=== PATIENT | male | born 1945 | race American Indian/Alaskan Native ===

== ENCOUNTER 2019-08-14 21:30 | Inpatient (IN) | payer MEDICARE ==
--- NOTE | 2019-08-14 22:15 | Emergency Department Report ---
HPI - General Chief Complaint: Chest Pain Time Seen by Provider: 08/14/19 21:38 - HPI HPI: 74-year-old Sonal male presents to the emergency department from home with complaint of some midsternal or generalized chest tightness that occurred earlier in the day. The patient says he went out to eat and when he came home he had some gas and bloating that caused this chest discomfort. About 3 hours prior to presentation the patient had an episode of vomiting and says that after he vomited all of his symptoms resolved. He did not take anything for her symptoms prior to arrival. He has a past medical history of non-insulin dependent diabetes, hypertension and hyperlipidemia. He denies any history of CT, CVA or PE/DVT. No recent travel or sick contacts at home. ED Past Medical Hx - Past Medical History Hx Hypertension: Yes Hx Diabetes: Yes - Surgical History Past Surgical History?: No - Social History Smoking Status: Never Smoker Substance Use Type: Alcohol - Medications Home Medications: Home Medications Medication Instructions Recorded Confirmed Last Taken Type Calcium Carbonate [Calcium] 1 tab PO DAILY 01/17/15 02/10/15 1 Day Ago History ~02/09/15 Cholecalciferol (Vitamin D3) 1 tab PO DAILY 01/17/15 02/10/15 1 Day Ago History [Vitamin D] ~02/09/15 Lisinopril 10 mg PO DAILY 01/17/15 02/10/15 1 Day Ago History ~02/09/15 metFORMIN [Glucophage] 500 mg PO BID #1 tablet 01/17/15 02/10/15 1 Day Ago Rx ~02/09/15 Saxagliptin HCl [Onglyza] 2.5 mg PO QDAY 02/10/15 02/10/15 1 Day Ago History ~02/09/15 ED Review of Systems ROS: Stated complaint: NAUSEA AND VOMITING Other details as noted in HPI Comment: All other systems reviewed and negative Constitutional: denies: chills, fever Eyes: denies: eye pain, vision change ENT: denies: ear pain, throat pain Respiratory: denies: cough, shortness of breath Cardiovascular: chest pain. denies: palpitations Gastrointestinal: vomiting. denies: abdominal pain Genitourinary: denies: dysuria, discharge Musculoskeletal: denies: back pain, arthralgia Skin: denies: rash, lesions Neurological: denies: headache, weakness Physical Exam - Physical Exam Vital Signs: Vital Signs 08/14/19 08/14/19 21:41 21:45 Temperature 97.4 F L Pulse Rate 102 H Respiratory 11 L Rate Blood Pressure 161/85 O2 Sat by Pulse 100 Oximetry Physical Exam: GENERAL: The patient is well-developed well-nourished. HENT: Normocephalic. Atraumatic. Patient has moist mucous membranes. EYES: Extraocular motions are intact. NECK: Supple. Trachea is midline. CHEST/LUNGS: Clear to auscultation. There is no respiratory distress noted. HEART/CARDIOVASCULAR: Regular. There is no tachycardia. There is no murmur. ABDOMEN: Abdomen is soft, nontender. Patient has normal bowel sounds. There is no abdominal distention. SKIN: Skin is warm and dry. NEURO: The patient is awake, alert, and oriented. The patient is cooperative. The patient has no focal neurologic deficits. Normal speech. MUSCULOSKELETAL: There is no tenderness or deformity. There is no evidence of acute injury. ED Course Vital Signs 08/14/19 08/14/19 21:41 21:45 Temperature 97.4 F L Pulse Rate 102 H Respiratory 11 L Rate Blood Pressure 161/85 O2 Sat by Pulse 100 Oximetry - Consultations Consultation #1: 08/15/19 00:37 I spoke with the conversion developer on-call, Dr. Ferrari, who agrees with the plan for the hyperkalemia cocktail and he will see the patient as a consult tomorrow. ED Medical Decision Making - Lab Data Result diagrams: 08/14/19 22:22 08/14/19 23:20 - EKG Data -: EKG Interpreted by Me EKG shows normal: sinus rhythm, axis (left axis deviation), intervals (prolonged QTC), QRS complexes (left bundle branch block), ST-T waves Rate: normal - EKG Data When compared to previous EKG there are: no significant change Interpretation: unchanged when compared t (02/10/15) - Radiology Data Radiology results: image reviewed interpreted by me: Chest x-ray does not show any acute process. There are no pleural effusions, obvious pneumonia and there is no pneumothorax. - Medical Decision Making This patient presents to the emergency department for evaluation after he had some chest tightness a few hours prior to arrival. The patient says that he had some gas, bloating and the chest tightness after eating some food but that all the symptoms resolved after he vomited. Overall this sounds more GI than cardiac, but the patient was evaluated as a chest pain protocol. EKG did not show any signs of ST elevation CT. He has a left bundle branch block and it appears unchanged from his previous EKG. Patient's labs show worsening renal insufficiency. Patient has had negative troponins 2 thus far. He was found to have hyperkalemia with potassium 6.5. This was repeated to make sure it was correct, but the repeat potassium level came back at 6.3. Patient was given hyperkalemia cocktail and nephrology was contacted and consulted. The patient will be admitted to the hospital and was accepted for admission by the hospitalist, Dr. Adame. - Differential Diagnosis CT, Esophageal spasm, electrolyte abnormalities, dysrythmia. Critical Care Time: No Critical care attestation.: If time is entered above; I have spent that time in minutes in the direct care of this critically ill patient, excluding procedure time. ED Disposition Clinical Impression: Left bundle branch block (LBBB), Intermittent chest pain, Hyperkalemia Acute on chronic renal failure Qualifiers: Acute renal failure type: unspecified Chronic kidney disease stage: unspecified stage Qualified Code(s): N17.9 - Acute kidney failure, unspecified; N18.9 - Chronic kidney disease, unspecified Disposition: OP ADMIT IP TO THIS HOSP Is pt being admited?: Yes Condition: Fair Time of Disposition: 02:57
--- NOTE | 2019-08-14 22:19 | XRay Report ---
CHEST 1 VIEW 08/14/2019 9:58 PM INDICATION / CLINICAL INFORMATION: Chest pain. COMPARISON: One view of the chest from 01/16/2015. FINDINGS: SUPPORT DEVICES: None. HEART / MEDIASTINUM: No significant abnormality. LUNGS / PLEURA: No significant pulmonary or pleural abnormality. No pneumothorax. ADDITIONAL FINDINGS: No significant additional findings. IMPRESSION: 1. No acute abnormality of the chest. Signer Name: Aj Anderson MD Signed: 08/14/2019 10:15 PM Workstation Name: [id number]
[2019-08-14 22:34] LABS: Basophils % (Auto) 0.4 % (0.0-1.8); Eosinophils % (Auto) 0.3 % (0.0-4.3); Hematocrit 40.9 % (35.5-45.6); Hemoglobin 13.5 gm/dl (11.8-15.2); Lymphocytes # (Auto) 1.1 K/mm3 (1.2-5.4); Lymphocytes % (Auto) 12.8 % (13.4-35.0); Mean Corpuscular HGB Conc 33 % (32-34); Mean Corpuscular Volume 94 fl (84-94); Monocytes # (Auto) 0.7 K/mm3 (0.0-0.8); Monocytes % (Auto) 7.3 % (0.0-7.3); Platelet Count 191 K/mm3 (140-440); Red Blood Count 4.33 M/mm3 (3.65-5.03); Red Cell Distribution Width 13.3 % (13.2-15.2)
[2019-08-14 22:44] LABS: INR 1.13 (0.87-1.13)
[2019-08-14 22:45] LABS: Partial Thromboplastin Time 22.7 Sec. (24.2-36.6)
[2019-08-14 22:46] LABS: Calcium 9.3 mg/dL (8.4-10.2)
[2019-08-15] MEDS ORDERED: SODIUM POLYSTYRENE 15 GM/60 ML ORAL LIQD PO ONE (00:19)
[2019-08-15] MEDS ORDERED: DEXTROSE 50% IN WATER (25GM) 50 ML SYRINGE IV ONE (00:20)
[2019-08-15] MEDS ORDERED: ALBUTEROL 2.5 MG/3 ML NEBU IH ONE ×2 (00:20→04:55)
[2019-08-15] MEDS ORDERED: CALCIUM GLUCONATE 1,000 MG in SODIUM CHLORIDE 0.9% 100 ML IV ONE (00:20)
[2019-08-15] MEDS ORDERED: INSULIN REGULAR, HUMAN 100 UNITS/1 ML IV ONE (00:20)
[2019-08-15] MEDS ORDERED: ONDANSETRON 4 MG/2 ML INJ IV PRN (01:19)
[2019-08-15] MEDS ORDERED: ACETAMINOPHEN 325 MG TAB PO PRN (01:19)
--- NOTE | 2019-08-15 01:27 | History and Physical Report ---
History of Present Illness Date of examination: 08/15/19 History of present illness: 74-year-old man with a history of hypertension, diabetes, chronic kidney disease comes emergency room for evaluation. He stated that he went to primary today, blocked food aided and later on developed nausea vomiting and diarrhea. Patient stated he felt better after vomiting, his daughter urged him to come to the emergency room for evaluation Review of systems Constitutional: no weight loss, chills, fever Ears, eyes, nose, mouth and throat: no nasal congestion, no nasal discharge, no sinus pressure, no vision change, no red eye. Neck: No neck pain or rigidity. Cardiovascular: no chest pain, palpitations Respiratory: no cough, shortness of breath Gastrointestinal: no abdominal pain hematochezia Genitourinary : no frequency , no hematuria Musculoskeletal: no joint swelling or muscle ache Integumentary: no rash, no pruritis Neurological: no parathesias, no numbness, no focal weakness Endocrine: no cold or heat intolerance, no polyuria or polydipsia Hematologic/Lymphatic: no easy bruising, no easy bleeding, no gland swelling Allergic/Immunologic: no urticaria, no angioedema. PAST MEDICAL HISTORY PAST SURGICAL HISTORY: None SOCIAL HISTORY: No drugs, tobacco, alcohol FAMILY HISTORY: Hypertension Medications and Allergies Allergies Allergy/AdvReac Type Severity Reaction Status Date / Time No Known Allergies Allergy Verified 02/10/15 07:51 Home Medications Medication Instructions Recorded Confirmed Last Taken Type Calcium Carbonate [Calcium] 1 tab PO DAILY 01/17/15 08/15/19 1 Day Ago History ~02/09/15 Cholecalciferol (Vitamin D3) 1 tab PO DAILY 01/17/15 08/15/19 1 Day Ago History [Vitamin D] ~02/09/15 Lisinopril 10 mg PO DAILY 01/17/15 08/15/19 1 Day Ago History ~02/09/15 metFORMIN [Glucophage] 500 mg PO BID #1 tablet 01/17/15 08/15/19 1 Day Ago Rx ~02/09/15 Saxagliptin HCl [Onglyza] 2.5 mg PO QDAY 02/10/15 08/15/19 1 Day Ago History ~02/09/15 Exam - Physical Exam Narrative exam: Gen. appearance: Patient lying in bed, no apparent distress HEENT: Normocephalic, atraumatic, pupils equally round and reactive to light, extraocular movement intact, and no sclericterus,. No JVD or thyromegaly or nodule,neck supple, no carotid bruit ,mucous membranes moist, no exudate or erythema Heart: S1, S2, regular rate and rhythm Lungs: Clear bilaterally, breathing comfortable Abdomen: Positive bowel sounds, non-tender, nondistended, no organomegaly Extremity:no edema cyanosis, clubbing Skin: no rash, dry, warm Neuro: Oriented 3, cranial nerves II-12 intact, speech is fluent, motor and sensory intact - Constitutional Vitals: Temp Pulse Resp BP Pulse Ox 97.4 F L 105 H 25 H 126/64 99 08/14/19 21:45 08/15/19 01:15 08/15/19 01:15 08/15/19 01:15 08/15/19 01:15 Results - Labs CBC & Chem 7: 08/14/19 22:22 08/14/19 23:20 Labs: Abnormal lab results 08/14/19 08/14/19 08/14/19 Range/Units 22:22 22:22 22:22 Lymph % (Auto) 12.8 L (13.4-35.0) % Lymph # 1.1 L (1.2-5.4) K/mm3 Seg Neutrophils % 79.2 H (40.0-70.0) % APTT 22.7 L (24.2-36.6) Sec. Potassium 6.5 H* (3.6-5.0) mmol/L BUN 40 H (9-20) mg/dL Creatinine 2.6 H (0.8-1.5) mg/dL Glucose 234 H (75-100) mg/dL 08/14/19 Range/Units 23:20 Lymph % (Auto) (13.4-35.0) % Lymph # (1.2-5.4) K/mm3 Seg Neutrophils % (40.0-70.0) % APTT (24.2-36.6) Sec. Potassium 6.3 H* (3.6-5.0) mmol/L BUN (9-20) mg/dL Creatinine (0.8-1.5) mg/dL Glucose (75-100) mg/dL - Imaging and Cardiology Chest x-ray: report reviewed Assessment and Plan Assessment Acute renal failure on chronic Hyperkalemia Hypertension Diabetes Plan Admit to medicine Status post cocktail for hyperkalemia Start IV fluids, renal was consulted to see the patient Check fingersticks and initiate insulin sliding scale DVT prophylaxis Addendum Patient having blood per rectum, check serial hemoglobin, consult GI
[2019-08-15] MEDS ORDERED: DEXTROSE 50% IN WATER (25GM) 50 ML SYRINGE IV PRN (01:28)
[2019-08-15] MEDS ORDERED: SODIUM CHLORIDE 0.45% 1000 ML 1,000 ML IV SCH (02:00)
[2019-08-15 05:32] VITALS: BP 113/70
[2019-08-15] MEDS: INSULIN LISPRO 100 UNIT/ML SUB-Q SCH ×2 (08:00→11:29)
[2019-08-15 08:29] LABS: Hematocrit 35.5 % (35.5-45.6); Hemoglobin 11.7 gm/dl (11.8-15.2); Mean Corpuscular HGB Conc 33 % (32-34); Mean Corpuscular Volume 94 fl (84-94); Platelet Count 160 K/mm3 (140-440); Red Blood Count 3.76 M/mm3 (3.65-5.03); Red Cell Distribution Width 13.4 % (13.2-15.2)
[2019-08-15 08:30] LABS: Basophils % (Auto) 0.4 % (0.0-1.8); Eosinophils % (Auto) 0.1 % (0.0-4.3); Lymphocytes # (Auto) 0.8 K/mm3 (1.2-5.4); Lymphocytes % (Auto) 11.8 % (13.4-35.0); Monocytes # (Auto) 0.6 K/mm3 (0.0-0.8); Monocytes % (Auto) 9.1 % (0.0-7.3)
[2019-08-15 08:42] LABS: Albumin 3.5 g/dL (3.9-5); Calcium 9.3 mg/dL (8.4-10.2)
[2019-08-15] MEDS ORDERED: ENOXAPARIN 30 MG/0.3 ML INJ SUB-Q SCH (10:00)
--- NOTE | 2019-08-15 10:32 | Consultation ---
History of Present Illness - Reason for Consult Consult date: 08/15/19 acute renal failure, chronic renal failure, hyperkalemia - History of Present Illness The patient is a 74 YO male with history significant for DM type 2, Hypertension and chronic kidney disease who presented to [facility] ED 08/14 with c/o nausea, vomiting and diarrhea. Patient is a poor historian. Pt vomited after he had the lunch yesterday. He felt better after vomiting, but his daughter urged him to come to the emergency room for evaluation. he has been feeling better now. On admission his labs were significant for K 6.5 and creat 2.6. His creatinine was 1.9 in January 2015. Currently he is not seeing any Clinical Social Work Aide. Nephrology was consulted for further evaluation. Past History Past Medical History: diabetes, hypertension, renal failure Medications and Allergies Allergies Allergy/AdvReac Type Severity Reaction Status Date / Time No Known Allergies Allergy Verified 02/10/15 07:51 Home Medications Medication Instructions Recorded Confirmed Last Taken Type Calcium Carbonate [Calcium] 1 tab PO DAILY 01/17/15 08/15/19 1 Day Ago History ~02/09/15 Cholecalciferol (Vitamin D3) 1 tab PO DAILY 01/17/15 08/15/19 1 Day Ago History [Vitamin D] ~02/09/15 Lisinopril 10 mg PO DAILY 01/17/15 08/15/19 1 Day Ago History ~02/09/15 metFORMIN [Glucophage] 500 mg PO BID #1 tablet 01/17/15 08/15/19 1 Day Ago Rx ~02/09/15 Saxagliptin HCl [Onglyza] 2.5 mg PO QDAY 02/10/15 08/15/19 1 Day Ago History ~02/09/15 Active Meds: Active Medications Acetaminophen (Tylenol) 650 mg PO Q4H PRN PRN Reason: Pain MILD(1-3)/Fever >100.5/MONTALVO Dextrose (D50w (25gm) Syringe) 50 ml IV Q30MIN PRN; Protocol PRN Reason: Hypoglycemia Sodium Chloride (Nacl 0.45% 1000 Ml) 1,000 mls @ 100 mls/hr IV DIRECT SABI Last Admin: 08/15/19 04:28 Dose: 100 mls/hr Documented by: Insulin Glargine (Lantus) 10 units SUB-Q QHS SABI Insulin Human Lispro (Humalog) 0 unit SUB-Q ACHS SABI; Protocol Ondansetron HCl (Zofran) 4 mg IV Q4H PRN PRN Reason: Nausea And Vomiting Sodium Chloride (Sodium Chloride Flush Syringe 10 Ml) 10 ml IV BID SABI Sodium Chloride (Sodium Chloride Flush Syringe 10 Ml) 10 ml IV PRN PRN PRN Reason: LINE FLUSH Review of Systems Constitutional: no weight loss, no weight gain, no fever, no chills, no anorexia, no fatigue, no weakness Cardiovascular: high blood pressure, no chest pain, no orthopnea, no edema, no syncope, no lightheadedness, no shortness of breath, no dyspnea on exertion, no leg edema Respiratory: no cough, no hemoptysis, no shortness of breath, no dyspnea on exertion Gastrointestinal: nausea, vomiting, diarrhea, no abdominal pain Genitourinary Male: no dysuria, no hematuria Musculoskeletal: no morning stiffness, no muscle weakness, no muscle cramps Integumentary: no rash, no redness, no sores, no wounds, no jaundice Neurological: no seizures, no syncope, no aphasia Exam - Vital Signs Vital signs: Vital Signs Pulse Resp BP Pulse Ox 102 H 11 L 161/85 100 08/14/19 21:41 08/14/19 21:41 08/14/19 21:41 08/14/19 21:41 - General Appearance General appearance: well-developed, well-nourished, appears stated age, other (no distress) EENT: ATNC, PERRL, hearing intact, vision intact Neck: Present: neck supple, trachea midline Respiratory: Clear to Ascultation Heart: regular, S1S2, no murmurs Gastrointestinal: Present: normoactive bowel sounds. Absent: tenderness, distended Integumentary: no rash, warm and dry Neurologic: no focal deficit, no asterixis, alert and oriented x3 Musculoskeletal: Present: other (no edema) Psychiatric: cooperative Results - Lab Results 08/15/19 07:38 08/15/19 07:38 Most recent lab results Calcium 9.3 mg/dL (8.4-10.2) 08/15/19 07:38 - Image Kidney/bladder ultrasound: pending Assessment and Plan 1. Acute kidney injury vs CKD stage 4: Patient presented with creatinine of 2.6 increased from 1.9 more than 4 yrs ago. Likely CKD stage 4. Urine studies and Renal US ordered. Renal function is same as yesterday. Monitor renal function. Avoid nephrotoxic agents. Meds dosage based on GFR. 2. FEN: Hyperkalemia, improved. Continue IV fluids for now. Monitor lytes. 3. Nausea and vomiting: Improved. 4. Hypertension: BP controlled. 5. DM type 2.
--- NOTE | 2019-08-15 10:45 | Consultation ---
REFERRING PHYSICIAN: Javier Ireland. INDICATION: Rectal bleeding. HISTORY OF PRESENT ILLNESS: The patient is a 74-year-old black male with history of hypertension, diabetes, chronic kidney disease, presented for evaluation. The patient reports he developed some nausea, vomiting, and diarrhea. The patient reports he feels now better after vomiting and he had vomited some black food. The patient is being managed for other issues including acute on chronic renal failure. The patient during his hospital course reported that he had two bouts of what he felt was bright red blood. He reports it occurred with bowel movements. He reports he was straining or having hard stools. The patient reports no history of GI bleeding. He reports no nausea or vomiting at this time. Denies any other GI complaints. The patient reports he had a colonoscopy performed by Dr. Fuller in 3-4 months ago and does not report any pertinent findings. He denies any other specific complaints. GI is consulted for the rectal bleeding. PAST MEDICAL HISTORY: Hypertension, diabetes, and chronic kidney disease. MEDICATIONS: Reviewed and updated in chart. ALLERGIES: No known drug allergies. SOCIAL HISTORY: Denies alcohol, tobacco or drug abuse. FAMILY HISTORY: Negative for colon cancer, IBD, or liver disease. REVIEW OF SYSTEMS: GENERAL: Reports mild weakness. HEENT: No visual complaints or tinnitus. PULMONARY: No short of breath. No cough. No chest pain. GASTROINTESTINAL: Reports a question of rectal bleeding. All points of 13-point review of systems otherwise negative. PHYSICAL EXAMINATION: VITAL SIGNS: Temperature of 98.0, pulse 100, respirations 18, blood pressure is 125/77. GENERAL: Fairly nourished male in no acute distress. HEENT: Pupils equal, round and reactive. PULMONARY: Clear to auscultation bilaterally. CARDIOVASCULAR: Regular rhythm. Normal S1, S2. ABDOMEN: Positive bowel sounds, soft. SKIN: No obvious rashes. LABORATORY DATA: Pertinent for white count of 7.1, hemoglobin and hematocrit of 11.7 and 35.5, platelet count of 160. Coags within normal limits. Chem-7, sodium of 137, potassium 4.7, chloride 101, CO2 of 20, BUN and creatinine of 45 and 2.6. ASSESSMENT AND PLAN: A 74-year-old black male with past medical history noted above, presented and admitted for non-GI reasons, now reports 2 bouts of possible bloody stools. The patient's H and H is stable. The patient reports that he had a colonoscopy about 3-[address] Fuller. He has had no further bleeding since yesterday and is otherwise stable. Management is noted below. PLAN: 1. Follow hematocrit and transfuse as needed. 2. We will review office chart, especially previous colonoscopy. 3. Other issues, management per primary team. 4. No plans for colonoscopy at this time. 5. We will follow further recommendation based on progress. 6. We will guaiac stool. JOB# [id number] CAB/NTS
--- NOTE | 2019-08-15 12:08 | Discharge Summary ---
Providers - Providers Date of Admission: 08/15/19 02:05 Date of discharge: 08/15/19 Attending physician: HERMES MOLINA 08/15/19 00:32 Consult to Physician [CONS] Routine Comment: Dr. Bowman spoke with Dr. Pichardo @ 0030 Consulting Provider: NICOLE PICHARDO Physician Instructions: Reason For Exam: Hyperkalemia, JULISSA 08/15/19 06:13 Consult to Physician [CONS] Routine Comment: Consulting Provider: CARMENZA AMBROCIO Physician Instructions: Reason For Exam: blood in stool Primary care physician: SCREW MACHINE SETTER Hospitalization Condition: Fair Hospital course: Patient states that he has to go home today. Cannot stay. Patient states he is trustworthy to follow-up on all outpatient follow-ups. Also spoke to his son will also confirmed the patient has follow-up and actually has an appointment with his primary care physician on Friday and scheduled to see a manager video games this week. That was given by primary care and would like to proceed with that plan. He should've 74-year-old with a history of chronic kidney disease 8. On one day had one episode of nausea vomiting has since resolved since hospital stay. Was noted that his renal function was worse than before and he had hyperkalemia. Patient's hypokalemia was corrected back at baseline patient was asymptomatic. Would like to follow with primary care physician and manager video games in 1 week as planned. Disposition: TO HOME OR SELFCARE - Discharge Diagnoses (1) Acute on chronic renal failure Status: Acute Qualifiers: Acute renal failure type: unspecified Chronic kidney disease stage: unspecified stage Qualified Code(s): N17.9 - Acute kidney failure, unspecified; N18.9 - Chronic kidney disease, unspecified Comment: Would discontinue DREW inhibitor and treat with amlodipine for now. (2) Hyperkalemia Status: Acute (3) Hypertension Status: Acute Core Measure Documentation - Palliative Care Palliative Care/ Comfort Measures: Not Applicable - Core Measures Any of the following diagnoses?: none Exam - Constitutional Vitals: Temp Pulse Resp BP Pulse Ox 98.0 F 128 H 16 125/77 95 08/15/19 05:29 08/15/19 06:15 08/15/19 05:31 08/15/19 05:29 08/15/19 08:26 General appearance: Present: no acute distress, well-nourished - EENT Eyes: Present: PERRL ENT: hearing intact, clear oral mucosa - Neck Neck: Present: supple, normal ROM - Respiratory Respiratory effort: normal Respiratory: bilateral: CTA - Cardiovascular Heart Sounds: Present: S1 & S2. Absent: rub, click - Extremities Extremities: pulses symmetrical, No edema Peripheral Pulses: within normal limits - Abdominal General gastrointestinal: Present: soft, non-tender, non-distended, normal bowel sounds Male genitourinary: Present: normal - Integumentary Integumentary: Present: clear, warm, dry - Musculoskeletal Musculoskeletal: gait normal, strength equal bilaterally - Psychiatric Psychiatric: appropriate mood/affect, intact judgment & insight - Neurologic Neurologic: CNII-XII intact, moves all extremities Plan Activity: no restrictions Weight Bearing Status: Full Weight Bearing Diet: renal Special Instructions: record daily BP diary, no heavy lifting Follow up with: PRIMARY CARE, [Primary Care Provider] - 3-5 Days
[2019-08-15 12:23] LABS: Hematocrit 34.4 % (35.5-45.6); Hemoglobin 11.6 gm/dl (11.8-15.2)
[2019-08-15] MEDS ORDERED: INSULIN GLARGINE 100 UNITS/ML SUB-Q SCH (22:00)
== END 2019-08-15 13:43 | disposition home or self-care (01) | DRG 683 ==
LOC: ED 21:30 → 4A 08-15 02:05
PROVIDERS: ADMIT Internal Medicine; ATTEND Internal Medicine
DX: N17.9 Acute kidney failure, unspecified (principal); K62.5 Hemorrhage of anus and rectum; E87.5 Hyperkalemia; I12.9 Hypertensive chronic kidney disease with stage 1 through stage 4 chronic kidney disease, or unspecified chronic kidney disease; E11.22 Type 2 diabetes mellitus with diabetic chronic kidney disease; E78.5 Hyperlipidemia, unspecified; N18.9 Chronic kidney disease, unspecified; Z82.49 Family history of ischemic heart disease and other diseases of the circulatory system; Z79.899 Other long term (current) drug therapy; I44.7 Left bundle-branch block, unspecified; R07.89 Other chest pain; Z79.84 Long term (current) use of oral hypoglycemic drugs
CPT/HCPCS: 36415; 71045; 80048; 80053; 82962; 84132; 84484; 85014; 85018; 85025; 85610; 85730; 93005; 93010; 94640; 94760; 96365; 96366; 96375; G0378; J0610; J1815; J7030

== ENCOUNTER 2021-01-02 12:56 | Observation (INO) | payer MEDICARE ==
[2021-01-02] MEDS ORDERED: SODIUM CHLORIDE 0.9% 500 ML 500 ML IV ONE (13:34)
--- NOTE | 2021-01-02 13:34 | Emergency Department Report ---
ED General Adult HPI - General Chief complaint: GI Bleed Stated complaint: RECTAL BLEEDING PUI?: No Time Seen by Provider: 01/02/21 13:26 Source: patient, EMS ( EMS documentation not available at time of chart dictation ), RN notes reviewed, old records reviewed Mode of arrival: Stretcher Limitations: No Limitations - History of Present Illness Initial comments: The patient was evaluated in the emergency department for symptoms described in the history of present illness. He/she was evaluated in the context of the global COVID-19 pandemic, which necessitated consideration that the patient might be at risk for infection with the virus that causes COVID-19. Institutional protocols and algorithms that pertain to the evaluation of patients at risk for COVID-19 are in a state of rapid change based on information released by regulatory bodies including the CDC and federal and state organizations. These policies and algorithms were followed during the patient's care in the emergency department. Please note that these policies, procedures and recommendations changed on a rapid basis. Primary CARE doctor: Dr. Starr Past medical history: Hypertension, diabetes, chronic renal insufficiency This is a 75-year-old gentleman. This patient is not known to myself previously. The patient presents to the ER today with a complaint of painless bright red blood per rectum x1 day. Patient was admitted to this medical service July 2019 for similar symptoms. Apparently he had a colonoscopy in mid 2018. When he was admitted previously, his bleeding had resolved, no recommendations for colonoscopy were made at that time. The patient states he is not had GI bleeding since 2019. He denies all other injuries or complaints. He does not believe he takes anticoagulants. He states he basically feels like he is at his baseline, except he is concerned and anxious about his rectal bleeding which is dark red, painless, and intermittent, present when he defecates. -: Sudden Severity scale (0 -10): 0 Consistency: intermittent Improves with: none Worsens with: none Associated Symptoms: denies other symptoms - Related Data Home Medications Medication Instructions Recorded Confirmed Last Taken Calcium Carbonate [Calcium] 1 tab PO DAILY 01/17/15 08/15/19 1 Day Ago ~02/09/15 Cholecalciferol (Vitamin D3) 1 tab PO DAILY 01/17/15 08/15/19 1 Day Ago [Vitamin D3] ~02/09/15 Saxagliptin HCl [Onglyza] 2.5 mg PO QDAY 02/10/15 08/15/19 1 Day Ago ~02/09/15 Previous Rx's Medication Instructions Recorded Last Taken Type metFORMIN [Glucophage] 500 mg PO BID #1 tablet 01/17/15 1 Day Ago Rx ~02/09/15 amLODIPine 5 mg PO DAILY #30 tab 08/15/19 Unknown Rx Allergies Allergy/AdvReac Type Severity Reaction Status Date / Time No Known Allergies Allergy Verified 02/10/15 07:51 ED Review of Systems ROS: Stated complaint: RECTAL BLEEDING Other details as noted in HPI Comment: All other systems reviewed and negative Gastrointestinal: hematochezia. denies: abdominal pain, hematemesis, melena ED Past Medical Hx - Past Medical History Hx Hypertension: Yes Hx Diabetes: Yes - Social History Smoking Status: Never Smoker - Medications Home Medications: Home Medications Medication Instructions Recorded Confirmed Last Taken Type Calcium Carbonate [Calcium] 1 tab PO DAILY 01/17/15 08/15/19 1 Day Ago History ~02/09/15 Cholecalciferol (Vitamin D3) 1 tab PO DAILY 01/17/15 08/15/19 1 Day Ago History [Vitamin D3] ~02/09/15 metFORMIN [Glucophage] 500 mg PO BID #1 tablet 01/17/15 08/15/19 1 Day Ago Rx ~02/09/15 Saxagliptin HCl [Onglyza] 2.5 mg PO QDAY 02/10/15 08/15/19 1 Day Ago History ~02/09/15 amLODIPine 5 mg PO DAILY #30 tab 08/15/19 Unknown Rx ED Physical Exam - General Limitations: No Limitations General appearance: alert, anxious, obese - Head Head exam: Present: atraumatic, normocephalic - Eye Eye exam: Present: normal appearance, EOMI. Absent: nystagmus - ENT ENT exam: Present: normal exam, normal orophraynx, mucous membranes moist, normal external ear exam - Neck Neck exam: Present: normal inspection, full ROM. Absent: tenderness, meningismus - Respiratory Respiratory exam: Present: normal lung sounds bilaterally. Absent: respiratory distress, wheezes, rales, rhonchi, stridor, decreased breath sounds - Cardiovascular Cardiovascular Exam: Present: normal rhythm, tachycardia, normal heart sounds. Absent: bradycardia, irregular rhythm, systolic murmur, diastolic murmur, rubs, gallop - GI/Abdominal GI/Abdominal exam: Present: soft. Absent: distended, tenderness, guarding, rebound, rigid, pulsatile mass - Rectal Rectal exam: Present: normal inspection, heme (+) stool, bloody stool - Extremities Exam Extremities exam: Present: normal inspection, full ROM, other (2+ pulses noted in the bilateral upper and lower extremities. There is no palpable cord. negative Homans sign. Muscular compartments are soft. The pelvis is stable.). Absent: pedal edema, calf tenderness - Back Exam Back exam: Present: normal inspection. Absent: tenderness, CVA tenderness (R), CVA tenderness (L), paraspinal tenderness, vertebral tenderness - Neurological Exam Neurological exam: Present: alert, other (No facial droop. Tongue midline. Extraocular movements intact bilaterally. Facial sensation intact to light touch in V1, V2, V3 distribution bilaterally. 5 and a 5 strength in 4 extremities. Sensation intact to light touch in 4 extremities.). Absent: motor sensory deficit - Psychiatric Psychiatric exam: Present: anxious - Skin Skin exam: Present: warm, dry, intact, normal color. Absent: rash ED Course Vital Signs 01/02/21 13:17 Temperature 97.4 F L Pulse Rate 100 H Respiratory 18 Rate Blood Pressure 122/70 [Left] O2 Sat by Pulse 94 Oximetry - Consultations Consultation #1: 01/02/21 15:24 discussed history, physical, labs and pertinent findings with Gi technical publications writer Dr Kim Stanley he is in agreement with admission and plan of care Consultation #2: 01/02/21 15:40 Patient found to have hyperkalemia at 6.9, in the context of chronic renal insufficiency. I have contacted nephrology on-call, Dr. Mariee, as patient does not have a primary superintendent police. We have discussed the patient's history, physical, pertinent laboratory studies. She is in agreement with administration of potassium cocktail, and also requests a bladder scan and Pruett catheter, which I have ordered. She also indicates that she will place dialysis orders for this patient. She also requests a vascular surgery consultation, which I will place in the computer, and she states that she will get in touch with the vascular surgeon to arrange for hemodialysis catheter placement. Hospital physician is updated on this plan of care. I will defer to the inpatient team to follow-up on Pruett catheter placement, bladder scan, and further discussion between nephrology, and vascular surgery on-call. ED Medical Decision Making - Lab Data Result diagrams: 01/02/21 14:13 01/02/21 14:13 Vital Signs 01/02/21 13:17 Temperature 97.4 F L Pulse Rate 100 H Respiratory 18 Rate Blood Pressure 122/70 [Left] O2 Sat by Pulse 94 Oximetry Lab Results 01/02/21 01/02/21 Range/Units 14:13 14:13 WBC 8.6 (4.5-11.0) K/mm3 RBC 3.85 (3.65-5.03) M/mm3 Hgb 12.0 (11.8-15.2) gm/dl Hct 36.3 (35.5-45.6) % MCV 94 (84-94) fl MCH 31 (28-32) pg MCHC 33 (32-34) % RDW 13.4 (13.2-15.2) % Plt Count 131 L (140-440) K/mm3 Lymph % (Auto) 10.9 L (13.4-35.0) % [place] % (Auto) 5.5 (0.0-7.3) % Eos % (Auto) 0.0 (0.0-4.3) % Baso % (Auto) 0.5 (0.0-1.8) % Lymph # (Auto) 0.9 L (1.2-5.4) K/mm3 [place] # (Auto) 0.5 (0.0-0.8) K/mm3 Eos # (Auto) 0.0 (0.0-0.4) K/mm3 Baso # (Auto) 0.0 (0.0-0.1) K/mm3 Seg Neutrophils % 83.1 H (40.0-70.0) % Seg Neutrophils # 7.2 (1.8-7.7) K/mm3 PT 14.9 (12.2-14.9) Sec. INR 1.17 H (0.87-1.13) APTT 27.5 (24.2-36.6) Sec. Lab Results 01/02/21 01/02/21 01/02/21 Range/Units 14:13 14:13 14:13 WBC 8.6 (4.5-11.0) K/mm3 RBC 3.85 (3.65-5.03) M/mm3 Hgb 12.0 (11.8-15.2) gm/dl Hct 36.3 (35.5-45.6) % MCV 94 (84-94) fl MCH 31 (28-32) pg MCHC 33 (32-34) % RDW 13.4 (13.2-15.2) % Plt Count 131 L (140-440) K/mm3 Lymph % (Auto) 10.9 L (13.4-35.0) % [place] % (Auto) 5.5 (0.0-7.3) % Eos % (Auto) 0.0 (0.0-4.3) % Baso % (Auto) 0.5 (0.0-1.8) % Lymph # (Auto) 0.9 L (1.2-5.4) K/mm3 [place] # (Auto) 0.5 (0.0-0.8) K/mm3 Eos # (Auto) 0.0 (0.0-0.4) K/mm3 Baso # (Auto) 0.0 (0.0-0.1) K/mm3 Seg Neutrophils % 83.1 H (40.0-70.0) % Seg Neutrophils # 7.2 (1.8-7.7) K/mm3 PT 14.9 (12.2-14.9) Sec. INR 1.17 H (0.87-1.13) APTT 27.5 (24.2-36.6) Sec. Sodium 135 L (137-145) mmol/L Chloride 104.5 (98-107) mmol/L Carbon Dioxide 24 (22-30) mmol/L Anion Gap 13 mmol/L BUN 30 H (9-20) mg/dL Creatinine 2.7 H (0.8-1.3) mg/dL Estimated GFR 28 ml/min BUN/Creatinine Ratio 11 % Glucose 278 H (75-100) mg/dL Calcium 8.8 (8.4-10.2) mg/dL Magnesium 1.80 (1.7-2.3) mg/dL Total Bilirubin 0.70 (0.1-1.2) mg/dL AST 17 (5-40) units/L ALT 11 (7-56) units/L Alkaline Phosphatase 73 (35-129) units/L Total Protein 6.8 (6.3-8.2) g/dL Albumin 3.1 L (3.9-5) g/dL Albumin/Globulin Ratio 0.8 % - EKG Data -: EKG Interpreted by Me EKG shows normal: sinus rhythm - EKG Data When compared to previous EKG there are: no significant change 01/02/21 15:06 EKG interpreted at 14: 10 Sinus rhythm, 91 bpm. Left axis deviation left bundle branch block morphology, this is an abnormal EKG, the QTC is prolonged. This appears to be unchanged from prior EKG. This is an abnormal EKG. This is not a STEMI. - Medical Decision Making Differential diagnosis, including but not limited to: Angiodysplasia, diverticulosis, malignancy, chronic renal insufficiency, hyperkalemia, electrolyte derangement Assessment and plan: 75-year-old gentleman, who was afebrile, with reassuring vital signs, clinically sober, with no physical pain at this time, with complaint of painless dark red blood per rectum times last night. He denies taking systemic anticoagulation. We contacted his primary care doctor's office, Dr. Starr, and this was confirmed independently. On my examination, has dark red blood per rectum, and has obviously bloodied underpants, and has blood on his lower extremities. Start IV fluids, establish IV access. Has chronic renal insufficiency, also found to have hyperkalemia, laboratory staff informing that hyperkalemia is not hemolyzed. EKG unchanged from prior. We will treat hyperkalemia medically. Have discussed with gastroenterology on-call, Dr. Stanley, who will follow in consultation. Hospital physician, Dr. Dooley, to admit patient to the medical service. We will also discuss with nephrology on-call for chronic renal insufficiency and hyperkalemia. Patient states he does not have a primary superintendent police that he is aware of. Patient is amenable to admission and hospitalization at this time. Critical Care Time: Yes Critical care time in (mins) excluding proc time.: 35 Critical care attestation.: If time is entered above; I have spent that time in minutes in the direct care of this critically ill patient, excluding procedure time. ED Disposition Clinical Impression: LGI bleed, Renal insufficiency, Left bundle branch block (LBBB), Hyperkalemia Disposition: OP ADMIT IP TO THIS HOSP Is pt being admited?: Yes Does the pt Need Aspirin: No Condition: Good Referrals: PRIMARY CARE,MD [Primary Care Provider] - 3-5 Days Forms: Accompanied Note
[2021-01-02 14:50] LABS: Basophils % (Auto) 0.5 % (0.0-1.8); Hematocrit 36.3 % (35.5-45.6); Lymphocytes # (Auto) 0.9 K/mm3 (1.2-5.4); Lymphocytes % (Auto) 10.9 % (13.4-35.0); Mean Corpuscular HGB Conc 33 % (32-34); Mean Corpuscular Volume 94 fl (84-94); Monocytes # (Auto) 0.5 K/mm3 (0.0-0.8); Monocytes % (Auto) 5.5 % (0.0-7.3); Platelet Count 131 K/mm3 (140-440); Red Blood Count 3.85 M/mm3 (3.65-5.03); Red Cell Distribution Width 13.4 % (13.2-15.2)
[2021-01-02 15:01] LABS: INR 1.17 (0.87-1.13)
[2021-01-02 15:02] LABS: Partial Thromboplastin Time 27.5 Sec. (24.2-36.6)
[2021-01-02] MEDS ORDERED: ALBUTEROL 2.5 MG/3 ML NEBU IH PRN (15:11)
[2021-01-02] MEDS ORDERED: ONDANSETRON 4 MG/2 ML INJ IV PRN (15:11)
[2021-01-02] MEDS ORDERED: ACETAMINOPHEN 325 MG TAB PO PRN (15:11)
--- NOTE | 2021-01-02 15:14 | History and Physical Report ---
History of Present Illness Chief complaint: I see blood when I go to the bathroom History of present illness: 75 YO Male with HTN, DM, CKD presents ED for evaluation. Patient reports "I see a lot of blood in the toilet". Patient states that he experienced an episode of painless rectal bleeding this morning. EMS was notified and upon arrival the patient was found to be in distress and subsequently transported to [facility] for further care and evaluation of the aforementioned symptoms. The patient was seen and evaluated in the emergency department. All lab and imaging studies reviewed. The patient was found to have clinical symptoms consistent with GI bleed. Patient also found to have JULISSA with ATN. GI team consulted in ED. Nephrology team consulted in ED. Patient found to have findings consistent with end-stage renal disease. Vascular surgery team consulted for Vas-Cath placement and urgent dialysis. Patient admitted to surgical floor and placed in observation status for further care and evaluation of the aforementioned symptoms. Patient denies fever, chills, chest pain, palpitations, productive c ough, skin rash, recent ill contacts, or known exposure to COVID-19. Prior admission on 08/15/2019 reviewed. All medication listed at time of admission has been reconciled. Advanced care planning conducted in ED. Past History Past Medical History: diabetes, hypertension, renal failure, other (See HPI) Past Surgical History: No surgical history, Other (Reviewed) Social history: , lives with family. denies: smoking, alcohol abuse, prescription drug abuse Family history: diabetes, hypertension Medications and Allergies Allergies Allergy/AdvReac Type Severity Reaction Status Date / Time No Known Allergies Allergy Verified 02/10/15 07:51 Home Medications Medication Instructions Recorded Confirmed Last Taken Type Calcium Carbonate [Calcium] 1 tab PO DAILY 01/17/15 08/15/19 1 Day Ago History ~02/09/15 Cholecalciferol (Vitamin D3) 1 tab PO DAILY 01/17/15 08/15/19 1 Day Ago History [Vitamin D3] ~02/09/15 metFORMIN [Glucophage] 500 mg PO BID #1 tablet 01/17/15 08/15/19 1 Day Ago Rx ~02/09/15 Saxagliptin HCl [Onglyza] 2.5 mg PO QDAY 02/10/15 08/15/19 1 Day Ago History ~02/09/15 amLODIPine 5 mg PO DAILY #30 tab 08/15/19 Unknown Rx Active Meds: Active Medications Acetaminophen (Acetaminophen 325 Mg Tab) 650 mg PO Q4H PRN PRN Reason: Pain MILD(1-3)/Fever >100.5/MONTALVO Albuterol (Albuterol 2.5 Mg/3 Ml Nebu) 2.5 mg IH Q4HRT PRN PRN Reason: Shortness Of Breath Amlodipine Besylate (Amlodipine 5 Mg Tab) 5 mg PO DAILY [facility] Cholecalciferol (Cholecalciferol (Vit D3) 5,000 Unit Tab) unit PO DAILY [facility] Miscellaneous Medication (Calcium Carbonate [Calcium]) 1 tab PO DAILY [facility] Ondansetron HCl (Ondansetron 4 Mg/2 Ml Inj) 4 mg IV Q8H PRN PRN Reason: Nausea And Vomiting Sodium Chloride (Sodium Chloride 0.9% 10 Ml Flush Syringe) 10 ml IV BID SABI Sodium Chloride (Sodium Chloride 0.9% 10 Ml Flush Syringe) 10 ml IV PRN PRN PRN Reason: LINE FLUSH Review of Systems Constitutional: no weight loss, no weight gain, no fever Ears, nose, mouth and throat: no ear pain, no ear discharge, no decreased hearing, no nasal discharge Cardiovascular: no chest pain, no orthopnea, no palpitations, no edema, no lightheadedness Respiratory: no cough, no cough with sputum, no hemoptysis, no shortness of breath Gastrointestinal: BRBPR, no abdominal pain, no nausea, no vomiting, no diarrhea, no constipation, no hematemesis, no coffee ground emesis, no hematochezia, no loss of appetite, no early satiety, no heartburn Genitourinary Male: no hematuria, no flank pain, no discharge, no urinary frequency, no urinary hesitancy Rectal: no pain, no incontinence, no bleeding Musculoskeletal: no neck stiffness, no neck pain, no shooting arm pain, no arm numbness/tingling, no low back pain, no shooting leg pain, no leg numbness/tingling Integumentary: no rash, no pruritis, no redness, no sores, no jaundice, no boils, no blisters Neurological: no head injury, no paralysis, no weakness, no tingling, no ataxia Psychiatric: no anxiety, no memory loss, no change in sleep habits, no hypersomnia, no change in libido, no suicidal ideation, no disorientation Endocrine: no cold intolerance, no excessive thirst, no polydipsia, no polyuria, no nocturia, no flushing Hematologic/Lymphatic: no easy bruising, no lymphadenopathy Allergic/Immunologic: no urticaria, no allergic rhinitis, no wheezing, no angioedema Exam - Constitutional Vitals: Temp Pulse Resp BP Pulse Ox 97.4 F L 100 H 18 122/70 94 01/02/21 13:17 01/02/21 13:17 01/02/21 13:17 01/02/21 13:17 01/02/21 13:17 General appearance: Present: mild distress - EENT Eyes: Present: PERRL ENT: hearing intact, clear oral mucosa - Neck Neck: Present: supple, normal ROM - Respiratory Respiratory effort: normal Respiratory: bilateral: CTA - Cardiovascular Heart Sounds: Present: S1 & S2. Absent: rub, click - Extremities Extremities: pulses symmetrical, No edema Peripheral Pulses: within normal limits - Abdominal General gastrointestinal: Present: soft, non-tender, non-distended, normal bowel sounds Male genitourinary: Present: normal - Integumentary Integumentary: Present: clear, warm, dry - Musculoskeletal Musculoskeletal: gait normal, strength equal bilaterally - Psychiatric Psychiatric: appropriate mood/affect, intact judgment & insight - Neurologic Neurologic: CNII-XII intact, moves all extremities Results - Labs CBC & Chem 7: 01/02/21 14:13 01/02/21 14:13 Labs: Abnormal lab results 01/02/21 01/02/21 Range/Units 14:13 14:13 Plt Count 131 L (140-440) K/mm3 Lymph % (Auto) 10.9 L (13.4-35.0) % Lymph # (Auto) 0.9 L (1.2-5.4) K/mm3 Seg Neutrophils % 83.1 H (40.0-70.0) % INR 1.17 H (0.87-1.13) Assessment and Plan - Patient Problems (1) End stage renal disease Current Visit: Yes Status: Acute Plan to address problem: Nephrology team consulted in ED, dialysis as per renal team. Vascular surgery team consulted regarding Vas-Cath placement. (2) Acute kidney injury (JULISSA) with acute tubular necrosis (ATN) Current Visit: Yes Status: Acute Plan to address problem: IV fluid resuscitation therapy, BMP, repeat BMP to monitor serum creatinine as well as GFR, monitor fluid balance. Nephrology team consulted. Further care and evaluation as per nephrology team. (3) LGI bleed Current Visit: Yes Status: Acute Plan to address problem: GI bleed protocol, PPI therapy, supportive care, GI team consulted in ED. No transfusion at this time. Will consider transfusion if patient drops hemoglobin greater than 2 g in 24. (4) DVT prophylaxis Current Visit: No Status: Acute Plan to address problem: SCD to bilateral lower extremities while in bed, patient is ambulatory. (5) Advance care planning Current Visit: Yes Status: Acute Plan to address problem: Disease education conducted, care plan discussed, prognosis discussed, diagnoses discussed, patient is full code, patient knowledges understanding care plan. Patient declines Vas-Cath placement at this time. Patient is concerned regarding need for urgent dialysis and requests further discussion with dining service supervisor. +30 minutes.
[2021-01-02 15:15] LABS: Albumin 3.1 g/dL (3.9-5); Calcium 8.8 mg/dL (8.4-10.2)
[2021-01-02] MEDS ORDERED: DEXTROSE 50% IN WATER (25GM) 50 ML SYRINGE IV ONE (15:26)
[2021-01-02] MEDS ORDERED: ALBUTEROL 2.5 MG/3 ML NEBU IH ONE (15:26)
[2021-01-02] MEDS ORDERED: INSULIN REGULAR, HUMAN 100 UNITS/1 ML IV ONE (15:26)
[2021-01-02] MEDS ORDERED: CALCIUM GLUCONATE 1,000 MG in SODIUM CHLORIDE 0.9% 100 ML IV ONE (15:26)
[2021-01-02] MEDS ORDERED: SODIUM POLYSTYRENE 15 GM/60 ML ORAL LIQD PO ONE (15:26)
[2021-01-02] MEDS ORDERED: SODIUM BICARB 8.4% 50 MEQ/50 ML SYRINGE IV ONE (15:35)
--- NOTE | 2021-01-02 15:46 | Event Note ---
Date: 01/02/21 Case was discussed with ER physician and vascular surgery Plan is for urgent dialysis following Vas-Cath placement HD nurse notified, orders placed Lisa Florentino MD
[2021-01-02] MEDS ORDERED: SODIUM CHLORIDE 0.9% 100 ML IV PRN (16:00)
--- NOTE | 2021-01-02 17:19 | Event Note ---
Date: 01/02/21 Discussed situation with patient and discussed placement of temporary hemodialysis catheter. Risks, benefits, and alternatives discussed. Patient declined procedure at this time and wants to further discuss this with the medical team and the screen tender helper. He is concerned about starting dialysis. Discussed hyperkalemia and risks of arrhythmia and . Patient understands. We will make patient n.p.o. after midnight except sips of water with meds for possible Vas-Cath tomorrow if he changes his mind.
[2021-01-02] MEDS ORDERED: PANTOPRAZOLE 40 MG INJ IV SCH (22:00)
[2021-01-03 08:13] LABS: Basophils % (Auto) 0.7 % (0.0-1.8); Eosinophils # (Auto) 0.1 K/mm3 (0.0-0.4); Eosinophils % (Auto) 1.2 % (0.0-4.3); Hematocrit 31.7 % (35.5-45.6); Hemoglobin 10.6 gm/dl (11.8-15.2); Lymphocytes # (Auto) 1.3 K/mm3 (1.2-5.4); Lymphocytes % (Auto) 19.8 % (13.4-35.0); Mean Corpuscular HGB Conc 33 % (32-34); Mean Corpuscular Volume 94 fl (84-94); Monocytes # (Auto) 0.7 K/mm3 (0.0-0.8); Platelet Count 129 K/mm3 (140-440); Red Blood Count 3.38 M/mm3 (3.65-5.03); Red Cell Distribution Width 13.5 % (13.2-15.2)
[2021-01-03 08:33] LABS: Albumin 3.1 g/dL (3.9-5); Calcium 8.4 mg/dL (8.4-10.2)
[2021-01-03] MEDS ORDERED: amLODIPine 5 MG TAB PO SCH (10:00)
[2021-01-03] MEDS ORDERED: CALCIUM CARBONATE 500 MG TAB CHEW PO SCH (10:00)
[2021-01-03] MEDS ORDERED: CALCIUM CARBONATE 500 MG PO SCH (10:00)
[2021-01-03] MEDS ORDERED: CHOLECALCIFEROL (VIT D3) 5,000 UNIT TAB PO SCH (10:00)
--- NOTE | 2021-01-03 10:37 | Progress Note ---
Assessment and Plan Assessment and plan: Acute kidney injury now progressed to ESRD. GI bleed. 01/03/2021. I discussed the need for placement of temporary hemodialysis catheter and initiation of hemodialysis. Patient continues to decline the procedure. I also discussed hyperkalemia and risks of arrhythmia and . Patient voiced understanding. I also called the and left a message regarding current situation. Await GI consultation with regards to GI bleed. History Interval history: No new issues overnight. Hospitalist Physical - Constitutional Vitals: Temp Pulse Resp BP Pulse Ox 98.3 F 97 H 18 125/62 99 01/03/21 07:42 01/03/21 07:42 01/03/21 07:42 01/03/21 07:42 01/03/21 07:42 General appearance: Present: mild distress - EENT Eyes: Present: PERRL, EOM intact ENT: hearing intact, clear oral mucosa, dentition normal - Neck Neck: Present: supple, normal ROM - Respiratory Respiratory effort: normal Respiratory: bilateral: CTA - Cardiovascular Rhythm: regular Heart Sounds: Present: S1 & S2. Absent: gallop, rub - Extremities Extremities: no ischemia, No edema, Full ROM - Abdominal General gastrointestinal: soft, non-tender, non-distended, normal bowel sounds - Integumentary Integumentary: Present: clear, warm, dry - Neurologic Neurologic: CNII-XII intact, moves all extremities Results - Labs CBC & Chem 7: 01/03/21 07:57 01/03/21 07:57 Labs: Laboratory Last Values WBC 6.6 K/mm3 (4.5-11.0) 01/03/21 07:57 RBC 3.38 M/mm3 (3.65-5.03) L 01/03/21 07:57 Hgb 10.6 gm/dl (11.8-15.2) L 01/03/21 07:57 Hct 31.7 % (35.5-45.6) L 01/03/21 07:57 MCV 94 fl (84-94) 01/03/21 07:57 MCH 31 pg (28-32) 01/03/21 07:57 MCHC 33 % (32-34) 01/03/21 07:57 RDW 13.5 % (13.2-15.2) 01/03/21 07:57 Plt Count 129 K/mm3 (140-440) L 01/03/21 07:57 Lymph % (Auto) 19.8 % (13.4-35.0) 01/03/21 07:57 [place] % (Auto) 11.0 % (0.0-7.3) H 01/03/21 07:57 Eos % (Auto) 1.2 % (0.0-4.3) 01/03/21 07:57 Baso % (Auto) 0.7 % (0.0-1.8) 01/03/21 07:57 Lymph # (Auto) 1.3 K/mm3 (1.2-5.4) 01/03/21 07:57 [place] # (Auto) 0.7 K/mm3 (0.0-0.8) 01/03/21 07:57 Eos # (Auto) 0.1 K/mm3 (0.0-0.4) 01/03/21 07:57 Baso # (Auto) 0.0 K/mm3 (0.0-0.1) 01/03/21 07:57 Seg Neutrophils % 67.3 % (40.0-70.0) 01/03/21 07:57 Seg Neutrophils # 4.5 K/mm3 (1.8-7.7) 01/03/21 07:57 PT 14.9 Sec. (12.2-14.9) 01/02/21 14:13 INR 1.17 (0.87-1.13) H 01/02/21 14:13 APTT 27.5 Sec. (24.2-36.6) 01/02/21 14:13 Sodium 142 mmol/L (137-145) D 01/03/21 07:57 Potassium 4.4 mmol/L (3.6-5.0) D 01/03/21 07:57 Chloride 106.3 mmol/L (98-107) 01/03/21 07:57 Carbon Dioxide 30 mmol/L (22-30) 01/03/21 07:57 Anion Gap 10 mmol/L 01/03/21 07:57 BUN 30 mg/dL (9-20) H 01/03/21 07:57 Creatinine 2.8 mg/dL (0.8-1.3) H 01/03/21 07:57 Estimated GFR 27 ml/min 01/03/21 07:57 BUN/Creatinine Ratio 11 % 01/03/21 07:57 Glucose 152 mg/dL (75-100) H 01/03/21 07:57 POC Glucose 139 mg/dL (70-105) H 01/02/21 21:44 Calcium 8.4 mg/dL (8.4-10.2) 01/03/21 07:57 Magnesium 1.80 mg/dL (1.7-2.3) 01/02/21 14:13 Total Bilirubin 0.50 mg/dL (0.1-1.2) 01/03/21 07:57 AST 17 units/L (5-40) 01/03/21 07:57 ALT 11 units/L (7-56) 01/03/21 07:57 Alkaline Phosphatase 64 units/L (35-129) 01/03/21 07:57 Total Protein 6.4 g/dL (6.3-8.2) 01/03/21 07:57 Albumin 3.1 g/dL (3.9-5) L 01/03/21 07:57 Albumin/Globulin Ratio 0.9 % 01/03/21 07:57 Blood Type O POSITIVE 01/02/21 14:45 Antibody Screen Negative 01/02/21 14:45 Active Medications - Current Medications Current Medications: Generic Name Dose Route Start Last Admin Trade Name Freq PRN Reason Stop Dose Admin Acetaminophen 650 mg 01/02/21 15:11 Acetaminophen 325 Mg Tab PO Q4H PRN Pain MILD(1-3)/Fever >100.5/MONTALVO Albuterol 2.5 mg 01/02/21 15:11 Albuterol 2.5 Mg/3 Ml Nebu IH Q4HRT PRN Shortness Of Breath Amlodipine Besylate 5 mg 01/03/21 10:00 Amlodipine 5 Mg Tab PO DAILY [facility] Calcium Carbonate/Glycine 500 mg 01/03/21 10:00 Calcium Carbonate 500 Mg Tab Chew PO DAILY [facility] Cholecalciferol 5,000 unit 01/03/21 10:00 Cholecalciferol (Vit D3) 5,000 Unit Tab PO DAILY [facility] Sodium Chloride 100 mls @ 999 mls/hr 01/02/21 16:00 Nacl 0.9% IV KARLA PRN Hypotension Ondansetron HCl 4 mg 01/02/21 15:11 Ondansetron 4 Mg/2 Ml Inj IV Q8H PRN Nausea And Vomiting Pantoprazole Sodium 40 mg 01/02/21 22:00 01/02/21 23:12 Pantoprazole 40 Mg Inj IV 40 mg BID SABI Administration Sodium Chloride 10 ml 01/02/21 22:00 01/02/21 23:12 Sodium Chloride 0.9% 10 Ml Flush Syringe IV 10 ml BID SABI Administration Sodium Chloride 10 ml 01/02/21 15:11 Sodium Chloride 0.9% 10 Ml Flush Syringe IV PRN PRN LINE FLUSH
[2021-01-03 10:50] LABS: Calcium 8.1 mg/dL (8.4-10.2)
[2021-01-03 11:25] VITALS: BP 129/65
--- NOTE | 2021-01-03 13:50 | Consultation ---
History of Present Illness - Reason for Consult Consult date: 01/03/21 acute renal failure, hyperkalemia - History of Present Illness This is a 75-year-old with diabetes, hypertension, CKD who presented to the emergency department with bright red blood per rectum. Workup obtained in the emergency department was notable for acute renal failure and severe hyperkalemia. Nephrology was consulted for further management. Patient has reportedly seen a lacquer coater in the past but is unable to verify the name of the lacquer coater. Patient denies NSAID use, headaches, chest pain, shortness of breath, weakness dysuria, urinary retention and weak stream. Past History Past Medical History: diabetes, hypertension, renal failure, other (See HPI) Past Surgical History: No surgical history, Other (Reviewed) Social history: , lives with family. denies: smoking, alcohol abuse, prescription drug abuse Family history: diabetes, hypertension Medications and Allergies Allergies Allergy/AdvReac Type Severity Reaction Status Date / Time No Known Allergies Allergy Verified 02/10/15 07:51 Home Medications Medication Instructions Recorded Confirmed Last Taken Type Calcium Carbonate [Calcium] 1 tab PO DAILY 01/17/15 08/15/19 1 Day Ago History ~02/09/15 Cholecalciferol (Vitamin D3) 1 tab PO DAILY 01/17/15 08/15/19 1 Day Ago History [Vitamin D3] ~02/09/15 metFORMIN [Glucophage] 500 mg PO BID #1 tablet 01/17/15 08/15/19 1 Day Ago Rx ~02/09/15 Saxagliptin HCl [Onglyza] 2.5 mg PO QDAY 02/10/15 08/15/19 1 Day Ago History ~02/09/15 amLODIPine 5 mg PO DAILY #30 tab 08/15/19 Unknown Rx Active Meds: Active Medications Acetaminophen (Acetaminophen 325 Mg Tab) 650 mg PO Q4H PRN PRN Reason: Pain MILD(1-3)/Fever >100.5/MONTALVO Albuterol (Albuterol 2.5 Mg/3 Ml Nebu) 2.5 mg IH Q4HRT PRN PRN Reason: Shortness Of Breath Amlodipine Besylate (Amlodipine 5 Mg Tab) 5 mg PO DAILY [facility] Calcium Carbonate/Glycine (Calcium Carbonate 500 Mg Tab Chew) 500 mg PO DAILY [facility] Cholecalciferol (Cholecalciferol (Vit D3) 5,000 Unit Tab) 5,000 unit PO DAILY [facility] Sodium Chloride (Nacl 0.9%) 100 mls @ 999 mls/hr IV KARLA PRN PRN Reason: Hypotension Ondansetron HCl (Ondansetron 4 Mg/2 Ml Inj) 4 mg IV Q8H PRN PRN Reason: Nausea And Vomiting Pantoprazole Sodium (Pantoprazole 40 Mg Inj) 40 mg IV BID [facility] Last Admin: 01/02/21 23:12 Dose: 40 mg Documented by: Sodium Chloride (Sodium Chloride 0.9% 10 Ml Flush Syringe) 10 ml IV BID [facility] Last Admin: 01/02/21 23:12 Dose: 10 ml Documented by: Sodium Chloride (Sodium Chloride 0.9% 10 Ml Flush Syringe) 10 ml IV PRN PRN PRN Reason: LINE FLUSH Review of Systems Constitutional: no fever, no chills Ears, nose, mouth and throat: no nasal congestion, no nasal discharge Cardiovascular: no chest pain, no palpitations Respiratory: no cough, no hemoptysis Gastrointestinal: no nausea, no vomiting Genitourinary Male: no dysuria, no incontinence Rectal: bleeding Musculoskeletal: no muscle weakness, no muscle cramps Integumentary: no rash, no redness Neurological: no weakness, no parathesias Psychiatric: no anxiety, no paranoia Endocrine: no polyphagia, no polydipsia Hematologic/Lymphatic: no easy bruising, no easy bleeding Allergic/Immunologic: no urticaria, no wheezing Exam - Vital Signs Vital signs: Vital Signs Temp Pulse Resp BP Pulse Ox 97.4 F L 100 H 18 122/70 94 01/02/21 13:17 01/02/21 13:17 01/02/21 13:17 01/02/21 13:17 01/02/21 13:17 - Physical Exam Narrative exam: General: No acute distress Neck: Supple, no JVD Chest: Clear to auscultation bilaterally Heart: RRR, S1 and S2, no pericardial rub Abdomen: Soft, nontender, no renal bruit Extremity: No peripheral cyanosis, edema Neurological: Alert, awake, no asterixis Dermatology: No skin rash Psych: No agitation Musculoskeletal: No joint effusion Results - Lab Results 01/03/21 13:35 01/03/21 10:18 Most recent lab results Calcium 8.1 mg/dL (8.4-10.2) L 01/03/21 10:18 Magnesium 1.80 mg/dL (1.7-2.3) 01/02/21 14:13 Assessment and Plan Assessment Acute kidney injury Severe hyperkalemia Hypocalcemia Anemia Hypocalcemia GI bleed Recommendations Patient refused urgent dialysis for severe hyperkalemia. Labs have improved with medical management, however will need monitoring to see if potassium stays within normal range. He has previously also presented with hyperkalemia and is at risk for recurrent hyperkalemia. Discussed low potassium diet and foods to avoid Gross complications of hyperkalemia including cardiac arrest and Check renal ultrasound Check iron studies Check PTH, Vit D and P Strict input and output Renally dose medications Avoid nephrotoxins GI consult pending
[2021-01-03 13:54] LABS: Basophils % (Auto) 0.5 % (0.0-1.8); Eosinophils # (Auto) 0.1 K/mm3 (0.0-0.4); Eosinophils % (Auto) 1.6 % (0.0-4.3); Hemoglobin 10.9 gm/dl (11.8-15.2); Lymphocytes # (Auto) 1.9 K/mm3 (1.2-5.4); Lymphocytes % (Auto) 27.3 % (13.4-35.0); Mean Corpuscular HGB Conc 33 % (32-34); Mean Corpuscular Volume 94 fl (84-94); Monocytes # (Auto) 0.6 K/mm3 (0.0-0.8); Monocytes % (Auto) 8.1 % (0.0-7.3); Platelet Count 143 K/mm3 (140-440); Red Cell Distribution Width 13.4 % (13.2-15.2)
--- NOTE | 2021-01-04 11:30 | Electrocardiograph Report ---
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
== END 2021-01-03 17:00 | disposition left against medical advice (07) ==
LOC: ED 12:56 → 3B-SURG 15:11 → 3A 21:06 → 3B-SURG 21:07
PROVIDERS: ADMIT Internal Medicine; ATTEND Hospitalist
DX: N17.0 Acute kidney failure with tubular necrosis (principal); K92.2 Gastrointestinal hemorrhage, unspecified; I12.0 Hypertensive chronic kidney disease with stage 5 chronic kidney disease or end stage renal disease; N18.6 End stage renal disease; E11.22 Type 2 diabetes mellitus with diabetic chronic kidney disease; I44.7 Left bundle-branch block, unspecified; E83.51 Hypocalcemia; D64.9 Anemia, unspecified; E87.5 Hyperkalemia; Z79.84 Long term (current) use of oral hypoglycemic drugs
CPT/HCPCS: 36415; 80048; 80053; 82962; 83735; 85025; 85610; 85730; 86850; 86900; 86901; 93005; 94640; 96374; 96375; 99291; C9113; G0378; J0610; J7040; J1815